=== PATIENT | male | born 1940 | race Caucasian/White ===

== ENCOUNTER → 2018-11-09 | Outpatient (CLI) | payer MEDICARE, OTHER ==
[2015-01-12 11:23] VITALS: BP 129/70
[~2018-11-09] MED LIST: ASPI-482 PO; CITALOPRAM 40 MG; DOCU-109 PO; FURO40TA4 PO; Hydrocodone/Acetaminophen PO; LISI10TA2 PO; PANT40TA77 PO; POTA20TA12 PO; SIMV20TA3 PO; TAMS0.4C97 PO; WARF10TA40 PO
--- NOTE | 2018-11-09 12:21 | KCIC ---
PQRS Compliance Statement: One or more of the following individualized dose reduction techniques were utilized for this examination: 1. Automated exposure control 2. Adjustment of the mA and/or kV according to patient size 3. Use of iterative reconstruction technique CT HEAD WITHOUT CONTRAST History: Dizziness, fall yesterday, hit head, on blood thinners. Comparison: None. Technique: Axial images are obtained of the head from the skull base through the vertex without IV contrast. Findings: No mass-effect, midline shift, extra-axial fluid collection, hemorrhage, or obvious acute infarction is identified. Basilar cisterns are patent. The ventricles and sulci are normal for patient age Bone windows demonstrate no acute calvarial abnormality. There is a 3 cm mucous retention cyst or polyp of the left maxillary sinus. Mild mucosal thickening right maxillary sinus. The maxillary sinuses are incompletely imaged. Mild mucosal thickening bilateral ethmoid sinuses.. Mastoid air cells are well aerated. IMPRESSION: No acute intracranial abnormality. Electronically signed by: Edwin Dowling MD (11/09/2018 12:17 PM) [id number]
--- NOTE | 2018-11-09 13:37 | KCIC ---
Cervical spine radiograph 11/09/2018 INDICATION: Severe neck pain, worse on the right side. Fell downhill he and hit head yesterday. COMPARISON: MRI cervical spine November 15, 2014 TECHNIQUE: Lateral, bilateral obliques, AP, odontoid and swimmer's view of the cervical spine are provided. FINDINGS: Cervical spine is visualized within the craniocervical junction through the cervicothoracic junction. There is minimal anterolisthesis of C5 on C6. There is no prevertebral soft tissue swelling. Spinous processes appear intact. There is moderate to advanced multilevel facet arthropathy. There is moderate osseous neuroforaminal stenosis on the left at C5-C6 and C6-C7. There is mild osseous neuroforaminal stenosis on the right at C3-C4 C5-C6 and C6-C7. Multilevel uncovertebral joint disease is identified. Lateral masses of C1 articulate appropriately with the C2 vertebral body. Dens is intact. TECHNIQUE: No acute fracture of the cervical spine. Mild to moderate cervical spondylosis with minimal anterolisthesis of C5 on C6. Electronically signed by: Tayler Jenkins MD (11/09/2018 1:34 PM) [facility]-KC[facility]
== END | disposition home or self-care (01) ==
LOC: KCIC 11:39
PROVIDERS: ATTEND Family Medicine
DX: M47.812 Spondylosis without myelopathy or radiculopathy, cervical region (principal); M48.02 Spinal stenosis, cervical region; M12.88 Other specific arthropathies, not elsewhere classified, other specified site; J34.89 Other specified disorders of nose and nasal sinuses
CPT/HCPCS: 70450; 72050

== ENCOUNTER → 2020-07-29 | Outpatient (CLI) | payer MEDICARE, OTHER ==
[2015-01-12 11:23] VITALS: BP 129/70
[~2020-07-29] MED LIST changes: +CONTRAST GIVEN. MC PRN; +IOHEXOL 240 MG/ML 50ML VIAL. PO ONE; +LISI10TA16 PO; -LISI10TA2 PO; +SIMV20TA18 PO; -SIMV20TA3 PO
--- NOTE | 2020-07-30 09:48 | KCIC ---
CT ABDOMEN+PELVIS W History: Left inguinal pain. Comparison: None. Technique: CT of the abdomen and pelvis with oral contrast only. Findings: Lung bases: Minimal tree-in-bud opacities dependent right lower lobe. No pleural or pericardial effus ion. General abdomen: No ascites. No free air. Nonspecific nodule posterior to the right hepatic lobe carlyle uring 1.3 x 0.7 cm. Liver : Normal in size and attenuation. No masses seen. Gallbladder/Biliary Tree: Status post cholecystectomy. No intrahepatic or extrahepatic biliary ductal dilatation. Pancreas: Normal. Spleen: Normal in size and attenuation. Adrenal Glands: ?Normal. Genitourinary: No hydronephrosis or hydroureter.? No renal masses identified. Normal partially disten ded bladder contour. Gastrointestinal: Unremarkable small bowel. The appendix is surgically absent. Mild sigmoid diverticu losis without evidence for diverticulitis. Lymph nodes: Prominent inguinal lymph nodes bilaterally measuring 1.5 cm short axis on the left and 1 .6 cm short axis on the right mild adjacent fat stranding. 8mm left pelvic sidewall lymph node. Vessels: Aorta iliac calcification without aneurysm. Pelvic Organs: ?Enlarged prostate with mass effect on the bladder. Soft tissues: Postsurgical features from left inguinal hernia repair. No evidence of recurrent inguin al hernia. Bones: No acute or aggressive lesions. ?Advanced silva lumbar disc and facet disease. Impression: 1. Bilateral inguinal adenopathy, may be reactive. Correlate for infectious process. Malignancy noris ot be excluded. 2. Postsurgical changes from left inguinal hernia repair. No recurrent inguinal hernia identified. 3. Enlarged prostate with mass effect on the inferior bladder. 4. Minimal tree-in-bud opacities posterior right lower lobe may represent infection or small airways disease. 5. Nonspecific retroperitoneal nodule measuring 1.3 x 0.7 cm posterior to the right hepatic lobe of uncertain etiology. Consider 3 month follow-up evaluation ------ Exposure: One or more of the following individualized dose reduction techniques were utilized for thi s examination: 1. Automated exposure control 2. Adjustment of the mA and/or kV according to patient size 3. Use of iterative reconstruction technique. Electronically signed by: Armando Snell MD (07/30/2020 9:46 AM) [facility]
== END ==
LOC: KCIC CT 12:40
PROVIDERS: ATTEND Family Medicine
DX: N40.0 Benign prostatic hyperplasia without lower urinary tract symptoms (principal); K40.90 Unilateral inguinal hernia, without obstruction or gangrene, not specified as recurrent; R91.1 Solitary pulmonary nodule; Z90.49 Acquired absence of other specified parts of digestive tract
CPT/HCPCS: 74176

== ENCOUNTER → 2020-08-26 | Outpatient (CLI) | payer MEDICARE, OTHER ==
[2015-01-12 11:23] VITALS: BP 129/70
[~2020-08-26] MED LIST changes: -CONTRAST GIVEN. MC PRN; -IOHEXOL 240 MG/ML 50ML VIAL. PO ONE
--- NOTE | 2020-08-26 16:32 | CARD ---
MR#: [id number] Date of Study: 08/26/2020 Ordering Physician: Anibal CHAU, Referring Physician: Anibal CHAU, Tech: Candice Palomares RDCS APPROVED REPORT EXAM: Two-dimensional and M-mode echocardiogram with Doppler and color Doppler. Other Information Quality : Good INDICATION Murmur 2D DIMENSIONS RVDd3.2 (2.9-3.5cm)Left Atrium(2D)4.0 (1.6-4.0cm) IVSd0.9 (0.7-1.1cm)Aortic Root(2D)3.0 (2.0-3.7cm) LVDd4.7 (3.9-5.9cm)LVOT Diameter2.3 (1.8-2.4cm) PWd0.8 (0.7-1.1cm)LVDs2.4 (2.5-4.0cm) FS (%) 30.0 %SV80.1 ml LVEF(%)60.0 (>50%) M-Mode DIMENSIONS Aortic Cusp Exc1.48 (1.5-2.0cm) Aortic Valve AoV Peak Valentin.119.8cm/sAoV VTI25.4cm AO Peak GR.5.7mmHgLVOT Peak Valentin.113.4cm/s LVOT VTI 26.89cmAO Mean GR.3mmHg VIDAL (VMAX)2.37yu2ZET (VTI)4.51cm2 Mitral Valve MV E Dlaptyhv06.7cm/sMV DECEL [id number] MV A Sgdmhoou80.6cm/sMV URW76ln E/A Ratio1.0MVA (PHT)3.48cm2 TDI E/Lateral E'9.9E/Medial E'19.4 Tricuspid Valve TR P. Eckdnkil996la/sRAP VPHPHGJS2ljPy TR Peak Gr.43dpMpXPAB79gdDf Pulmonary Vein S1 Uqxqkuhk75.7cm/sD2 Wqzvqlei14.7cm/s LEFT VENTRICLE The left ventricle is normal size. There is normal left ventricular wall thickness. The left ventricu lar systolic function is normal and the ejection fraction is within normal range. The Ejection Fracti on is 55-60%. There is normal LV segmental wall motion. Transmitral Doppler flow pattern is Grade II- pseudonormal filling dynamics. RIGHT VENTRICLE The right ventricle is normal size. The right ventricular systolic function is normal. ATRIA The left atrium is mildly dilated. The right atrium size is normal. The interatrial septum is intact with no evidence for an atrial septal defect or patent foramen ovale as noted on 2-D or Doppler imagi ng. AORTIC VALVE The aortic valve is moderately thickened and heavily calcified Doppler and Color Flow revealed mild a ortic regurgitation. There is no significant aortic valvular stenosis. MITRAL VALVE The mitral valve is mildly thickened but opens well. There is no evidence of mitral valve prolapse. T here is no mitral valve stenosis. Doppler and Color-flow revealed mild mitral regurgitation. TRICUSPID VALVE The tricuspid valve is normal in structure and function. Doppler and Color Flow revealed mild tricusp id regurgitation. There is moderate pulmonary hypertension. The PA pressure was estimated at 46 mmHg. There is no tricuspid valve stenosis. PULMONIC VALVE The pulmonic valve is not well visualized. Doppler and Color Flow revealed mild pulmonic valvular reg urgitation. There is no pulmonic valvular stenosis. GREAT VESSELS The aortic root is normal in size. The ascending aorta is mildly dilated at 3.7 cm. The IVC is dilate d and collapses >50% with inspiration. PERICARDIAL EFFUSION There is no evidence of significant pericardial effusion. Critical Notification Critical Value: No <Conclusion> The left ventricular systolic function is normal and the ejection fraction is within normal range. Th e Ejection Fraction is 55-60%. There is normal LV segmental wall motion. The aortic valve is moderately thickened and heavily calcified Doppler and Color-flow revealed mild mitral regurgitation. Doppler and Color Flow revealed mild tricuspid regurgitation. There is moderate pulmonary hypertensio n. The PA pressure was estimated at 46 mmHg. The ascending aorta is mildly dilated at 3.7 cm. Signed by : David Cavanaugh, Electronically Approved : 08/26/2020 16:32:25
== END ==
LOC: ECHO 09:07
PROVIDERS: ATTEND Family Medicine
DX: I08.8 Other rheumatic multiple valve diseases (principal)
CPT/HCPCS: 93306

== ENCOUNTER → 2020-09-04 | Outpatient (CLI) | payer MEDICARE, OTHER ==
[2015-01-12 11:23] VITALS: BP 129/70
--- NOTE | 2020-09-04 15:53 | RESP ---
DATE OF SERVICE: 09/04/2020 NAME OF STUDY: PFT. ATTENDING PHYSICIAN: Dr. Guerrero. The patient's FVC was 3.23, which is 85% predicted, FEV1 2.47, which is 85% predicted. The FEV1/FVC ratio was normal. FEF 25-75 was 61% predicted. No bronchodilator was given. Total lung capacity was 160% predicted, residual volume 241% predicted. Diffusion capacity normal. IMPRESSION: 1. No significant obstructive airway disease. The patient has a mild small airway dysfunction. 2. No bronchodilator was given. 3. Lung volumes consistent with air trapping and hyperinflation. 4. Normal diffusion capacity. MAXWELL/DAVE/MADISON DR: MAXWELL/brenda TID: [id number] CC: LAUREN GUERRERO MD
== END ==
LOC: PF 08:49
PROVIDERS: ATTEND Family Medicine
DX: J44.9 Chronic obstructive pulmonary disease, unspecified (principal)
CPT/HCPCS: 94010; 94726; 94729

== ENCOUNTER → 2021-04-14 | Outpatient (CLI) | payer MEDICARE, OTHER ==
[2015-01-12 11:23] VITALS: BP 129/70
--- NOTE | 2021-04-15 09:23 | KCIC ---
EXAM: XR LUMBAR SPINE 4+V 04/14/2021 1:05 PM CLINICAL INDICATION: Worsening low back pain, decreased ability COMPARISON: CT abdomen pelvis 07/29/2020 TECHNIQUE: AP, right and left oblique, lateral, and cone-down lateral view of the lumbar spine FINDINGS: There 5 nonrib-bearing lumbar vertebral bodies. No acute fracture. There is straightening of lordosis. No listhesis. There is levoscoliosis of the lumbar spine centered at L3-L4. Severe disc space narrowing at L1-L2 through L3-L4 and L5-S1, moderate at L4-L5. Prominent anterior and lateral o steophytes, greatest at L2-L3 and L3-L4. There is multilevel facet arthrosis. There are surgical clip s in the right hemiabdomen IMPRESSION: Lumbar scoliosis with severe multilevel degenerative disc disease and facet arthrosis. Electronically signed by: Kaye Benton MD (04/15/2021 9:21 AM) [id number]
== END ==
LOC: KCIC 13:01
PROVIDERS: ATTEND Family Medicine
DX: M51.36 Other intervertebral disc degeneration, lumbar region (principal); M41.86 Other forms of scoliosis, lumbar region; M25.78 Osteophyte, vertebrae; M48.07 Spinal stenosis, lumbosacral region; M47.816 Spondylosis without myelopathy or radiculopathy, lumbar region; Z98.890 Other specified postprocedural states
CPT/HCPCS: 72110